=== PATIENT | female | born 1985 | race Two or more races ===

== ENCOUNTER 2020-03-05 00:44 | Emergency (ER) | payer SELFPAY ==
--- NOTE | 2020-03-05 03:58 | ER Document Report ---
ED GI/ - General Chief Complaint: Nausea/Vomiting Stated Complaint: COUGH,NAUSEOUS Time Seen by Provider: 03/05/20 03:40 Mode of Arrival: Ambulatory Information source: Patient Notes: 03/05/20 02:23 - ED Nursing Note by ELISE BRIGGS Num: [id number] : 1985 Patient Age: [age] Y/O FEMALE WITH HX OF GERD, PRESENTS WITH 3/4 DAYS OF EPI-GASTRIC PAIN, NAUSEA, BODY ACHES AND DECREASED APPETITE. NO ACTIVE VOMITING AT THIS TIME. REPORTS DIARRHEA TODAY. MY NOTES 34-year-old female arrives with chief complaint of epigastric pain for 4 days but worse over the last 2 days with myalgias nausea vomiting diarrhea. Patient smokes 1 pack of cigarettes daily but denies any marijuana or other illegal drug use. She does admit to drinking alcohol on a daily basis. She denies any history of pancreatitis. Patient has denied any mild sore throat but her right tonsil was +1 with injection bilaterally. TRAVEL OUTSIDE OF THE [place] IN LAST 30 DAYS: No - HPI Patient complains to provider of: Abdominal pain, Diarrhea, Vomiting. No: Dysuria, Feeding tube problem, Flank pain, Hematuria, Missed/Late menses, Pelvic pain, , Urinary retention, Vaginal bleeding, Vaginal discharge, Vaginal pain Onset: Yesterday Timing/Duration: Persistent, Worse Quality of pain: Achy Severity at maximum: Moderate Severity in ED: Moderate Pain Level: 2 Context: Bad food Location: Epigastric - Related Data Allergies/Adverse Reactions: No Known Allergies Allergy (Unverified 03/05/20 02:17) Past Medical History - General Information source: Patient - Social History Smoking Status: Current Every Day Smoker Cigarette use (# per day): Yes Chew tobacco use (# tins/day): No Smoking Education Provided: Yes Frequency of alcohol use: Occasional Drug Abuse: None Lives with: Family Family History: Reviewed & Not Pertinent Patient has suicidal ideation: No Patient has homicidal ideation: No Review of Systems - Review of Systems Constitutional: See HPI, Weakness, Recent illness EENT: No symptoms reported Cardiovascular: No symptoms reported Respiratory: No symptoms reported Gastrointestinal: See HPI, Abdominal pain, Diarrhea, Nausea, Vomiting, Poor appetite, Poor fluid intake Genitourinary: No symptoms reported Female Genitourinary: No symptoms reported Musculoskeletal: No symptoms reported Skin: No symptoms reported Hematologic/Lymphatic: No symptoms reported Neurological/Psychological: See HPI, Weakness -: Yes All other systems reviewed and negative Physical Exam - Vital signs Vitals: Temp Pulse Resp BP Pulse Ox 98.0 F 92 16 122/83 98 03/05/20 02:12 03/05/20 02:12 03/05/20 02:12 03/05/20 02:12 03/05/20 02:12 Interpretation: Normal - General General appearance: Alert - HEENT Head: Normocephalic, Atraumatic Eyes: Normal Pupils: PERRL Ears: Normal Sinus: Normal Nasal: Normal Mouth/Lips: Normal Mucous membranes: Dry Pharynx: Erythema, Tonsillar hypertrophy, Other - injected post pharynx - Respiratory Respiratory status: No respiratory distress Chest status: Nontender Breath sounds: Normal Chest palpation: Normal - Cardiovascular Rhythm: Regular Heart sounds: Normal auscultation Murmur: No - Abdominal Inspection: Normal Distension: No distension Bowel sounds: Hyperactive Tenderness: Tender - Epigastric tenderness on palpation with diffuse borborygmi Organomegaly: No organomegaly - Rectal Hemorrhoids: Other - deferred - Genitourinary Bimanuel exam: Other - deferred - Back Back: Normal, Nontender - Extremities General upper extremity: Normal inspection, Nontender, Normal color, Normal ROM, Normal temperature General lower extremity: Normal inspection, Nontender, Normal color, Normal ROM, Normal temperature, Normal weight bearing. No: Bert's sign - Neurological Neuro grossly intact: Yes Cognition: Normal Orientation: AAOx4 Carlitos Coma Scale Eye Opening: Spontaneous Peel Coma Scale Verbal: Oriented Carlitos Coma Scale Motor: Obeys Commands Carlitos Coma Scale Total: 15 Speech: Normal Motor strength normal: LUE, RUE, LLE, RLE Sensory: Normal - Psychological Associated symptoms: Normal affect, Normal mood - Skin Skin Temperature: Warm Skin Moisture: Dry Skin Color: Normal Skin Turgor: Tenting Course - Vital Signs Vital signs: Temp Pulse Resp BP Pulse Ox 98.0 F 92 16 122/83 98 03/05/20 02:12 03/05/20 02:12 03/05/20 02:12 03/05/20 02:12 03/05/20 02:12 - Laboratory Result Diagrams: 03/05/20 02:45 03/05/20 02:45 Laboratory results interpreted by me: 03/05/20 02:45 Carbon Dioxide 31 H Creatinine 0.51 L ALT 51 H - Diagnostic Test Radiology reviewed: Reports reviewed Discharge - Discharge Clinical Impression: Gastroenteritis due to norovirus Condition: Stable Disposition: HOME, SELF-CARE Additional Instructions: Follow-up with personal doctor this week return to ER symptoms persist or worsen. Take medicines as directed encourage fluids avoid milk and meat products until able to tolerate brat diet bananas rice applesauce toast. Try to avoid other people for 1 week should this be viral in origin. Prescriptions: Prochlorperazine Maleate [Compazine 10 mg Tablet] 10 mg PO TID #10 tablet Forms: Return to Work
[2020-03-05] MEDS ORDERED: ONDANSETRON HCL INJ/PF 4 MG/2 ML SDV IV ONE (04:00)
[2020-03-05] MEDS ORDERED: KETOROLAC TROMETHAMINE INJ/PF 30 MG/1 ML SDV IV ONE (04:01)
[2020-03-05 04:03] LABS: ABSOLUTE BASOPHILS # (AUTO) 0.1 10^3/uL (0.0-0.2); ABSOLUTE EOSINOPHILS # (AUTO) 0.3 10^3/uL (0.0-0.6); ABSOLUTE LYMPHOCYTES (AUTO) 3.5 10^3/uL (0.5-4.7); ABSOLUTE MONOCYTES (AUTO) 0.6 10^3/uL (0.1-1.4); ABSOLUTE NEUT (AUTO) 5.9 10^3/uL (1.7-8.2); BASOPHILS % (AUTO) 0.7 % (0-2); HEMATOCRIT 37.1 % (36.0-47.0); HEMOGLOBIN 13.1 g/dL (12.0-15.5); LYMPHOCYTES % (AUTO) 33.6 % (13-45); MEAN CORPUSCULAR HEMOGLOBIN 32.2 pg (27.0-33.4); MEAN CORPUSCULAR HGB CONC 35.2 g/dL (32.0-36.0); MEAN CORPUSCULAR VOLUME 92 fl (80-97); MONOCYTES % (AUTO) 6.2 % (3-13); PLATELET COUNT 209 10^3/uL (150-450); RED BLOOD COUNT 4.05 10^6/uL (3.72-5.28); RED CELL DISTRIBUTION WIDTH 12.8 % (11.5-14.0); SEGMENTED NEUTROPHILS % (AUTO) 56.5 % (42-78); TOTAL CELLS COUNTED % (AUTO) 100 %; WHITE BLOOD COUNT 10.5 10^3/uL (4.0-10.5)
[2020-03-05 04:06] LABS: APPEARANCE,URINE CLEAR; BILIRUBIN,URINE NEGATIVE (NEGATIVE); COLOR,URINE STRAW; GLUCOSE, URINE NEGATIVE (NEGATIVE); KETONES,URINE NEGATIVE (NEGATIVE); LEUKOCYTE ESTERASE,URINE NEGATIVE (NEGATIVE); NITRITE,URINE NEGATIVE (NEGATIVE); PROTEIN,URINE NEGATIVE (NEGATIVE); URINE SPECIFIC GRAVITY 1.006; UROBILINOGEN,URINE NEGATIVE mg/dL (<2.0)
[2020-03-05 04:20] LABS: ALBUMIN 4.1 g/dL (3.5-5.0); ALKALINE PHOSPHATASE 42 U/L (38-126); ANION GAP 10 (5-19); ASPARTATE AMINO TRANSFERASE 34 U/L (14-36); BILIRUBIN,DIRECT 0.2 mg/dL (0.0-0.4); BILIRUBIN,TOTAL 0.4 mg/dL (0.2-1.3); BLOOD UREA NITROGEN 9 mg/dL (7-20); CALCIUM 8.8 mg/dL (8.4-10.2); CARBON DIOXIDE 31 mmol/L (22-30); CHLORIDE 100 mmol/L (98-107); GLUCOSE 86 mg/dL (75-110); POTASSIUM 3.8 mmol/L (3.6-5.0); TOTAL PROTEIN 6.8 g/dL (6.3-8.2)
[2020-03-05] MEDS: NORMAL SALINE 1000 ML 1,000 ML IV PRN ×2 (04:42→06:07)
[2020-03-05] MEDS ORDERED: ONDANSETRON ODT 4 MG TAB (6 TAB/ER DISP) PO PRN (05:45)
--- NOTE | 2020-03-05 06:12 | RADIOLOGY REPORT (SQ) ---
Abdomen x-ray single view on 03/05/2020 at 4:59 AM Clinical indications: Generalized abdominal pain, nausea and vomiting and diarrhea COMPARISON: None FINDINGS: Calcifications in the left pelvis likely all represent phleboliths. No other abnormal calcification or mass effect is noted. Bowel gas pattern is unremarkable. No increased stool to suggest constipation is noted. Mild degenerative changes are noted in the upper lumbar spine. IMPRESSION: Nonspecific abdomen.
[2020-03-05 06:16] VITALS: BP 123/82
== END 2020-03-05 06:16 | disposition home or self-care (01) ==
LOC: ER 00:44
DX: A08.11 Acute gastroenteropathy due to Norwalk agent (principal); R10.13 Epigastric pain; R10.816 Epigastric abdominal tenderness; R63.0 Anorexia; R19.7 Diarrhea, unspecified; R11.2 Nausea with vomiting, unspecified; R53.1 Weakness; J35.1 Hypertrophy of tonsils; F17.210 Nicotine dependence, cigarettes, uncomplicated
CPT/HCPCS: 99284; 96361; 96374; 96375; 36415; 82150; 84702; 83690; 85025; 80053; 81001; 74018; J1885; J2405; J7030